=== PATIENT | male | born 1995 | race Caucasian/White ===

== ENCOUNTER 2018-04-07 13:38 | Emergency (ER) | payer OTHER ==
[2018-04-07] MEDS: NS 1,000 ML IV (14:32)
[2018-04-07] MEDS: HumuLIN R (REGULAR) INSULIN (NovoLIN R) **100U/ML** PER UNIT IV ×3 (14:32→16:30)
[2018-04-07 14:39] LABS: VENOUS BASE EXCESS -2.5 (-2.0-2.0); VENOUS HCO3 24.1 MEQ/L (23.0-27.0); VENOUS O2 SATURATION 85.8 % (60.0-80.0); VENOUS PARTIAL PRESSURE CO2 48.1 mmHg (38.0-50.0); VENOUS PH 7.318 UNITS (7.330-7.430); VENOUS STANDARD HCO3 22.1 MEQ/L; VENOUS TOTAL CO2 25.6 MEQ/L (24.0-28.0)
[2018-04-07 14:41] LABS: KETONE, URINE AUTO RFX 1+ mg/dL (NEGATIVE); LEUKOCYTE ESTERASE UR AUTO RFX NEGATIVE (NEGATIVE); NITRITE, URINE AUTO RFX NEGATIVE (NEGATIVE); RBC, URINE AUTO RFX 1 /HPF (0-3); SPECIFIC GRAVITY UR AUTO RFX 1.025 (1.002-1.035); SQUAM EPITHELIAL CELL UR AURFX 0 /HPF (0-6); WBC, URINE AUTO RFX 0 /HPF (0-3)
[2018-04-07 14:55] LABS: ESTIMATED AVERAGE GLUCOSE 269 MG/DL (60-110)
[2018-04-07 15:03] LABS: ACETONE/KETONE 21.17 MG/DL (<2.81); ANION GAP 12 MEQ/L (8-16); BLOOD UREA NITROGEN 37 MG/DL (7-18); CALCIUM LEVEL 9.5 MG/DL (8.5-10.1); CARBON DIOXIDE LEVEL 28 MEQ/L (21-32); CHLORIDE LEVEL 87 MEQ/L (98-107); CREATININE FOR GFR 1.62 MG/DL (0.70-1.30); POTASSIUM SERUM 4.9 MEQ/L (3.5-5.1); SODIUM LEVEL 127 MEQ/L (136-145)
[2018-04-07 15:07] LABS: GLUCOSE, FASTING 874 MG/DL (70-100)
[2018-04-07 15:19] LABS: BASO # 0.1 10^3/uL (0.0-0.2); BASO % 0.7 % (0.0-1.0); EOS # 0.4 10^3/uL (0.0-0.50); EOS % 5.9 % (0.0-3.0); HEMATOCRIT 45.3 % (42.0-52.0); HEMOGLOBIN 16.5 g/dl (13.5-17.5); IMMATURE GRANULOCYTE % 0.1 % (0-3.0); LYMPH # 2.1 10^3/uL (1.5-6.5); LYMPH % 28.5 % (24.0-44.0); MEAN CORPUSCULAR HEMOGLOBIN 30.5 pg (27.0-33.0); MEAN CORPUSCULAR HGB CONC 36.4 g/dl (32.0-36.5); MEAN CORPUSCULAR VOLUME 83.7 fl (80.0-96.0); MONO # 0.6 10^3/uL (0.0-0.8); MONO % 8.1 % (0.0-5.0); NEUTROPHILS # 4.1 10^3/uL (1.8-7.7); NEUTROPHILS % 56.7 % (36.0-66.0); PLATELET COUNT, AUTOMATED 214 10^3/uL (150-450); RED BLOOD COUNT 5.41 10^6/uL (4.30-6.10); RED CELL DISTRIBUTION WIDTH 11.6 % (11.5-14.5); WHITE BLOOD COUNT 7.3 10^3/uL (4.0-10.0)
[2018-04-07] MEDS: metFORMIN (GLUCOPHAGE) 1000 MG TABLET PO (15:27)
[2018-04-07 16:04] LABS: BEDSIDE GLUCOSE 471 MG/DL (70-105)
[2018-04-07 16:29] LABS: VENOUS BASE EXCESS -2.8 (-2.0-2.0); VENOUS HCO3 23.2 MEQ/L (23.0-27.0); VENOUS O2 SATURATION 86.3 % (60.0-80.0); VENOUS PARTIAL PRESSURE CO2 44.9 mmHg (38.0-50.0); VENOUS PARTIAL PRESSURE O2 53.8 mmHg (30.0-50.0); VENOUS PH 7.332 UNITS (7.330-7.430); VENOUS STANDARD HCO3 21.9 MEQ/L; VENOUS TOTAL CO2 24.6 MEQ/L (24.0-28.0)
[2018-04-07 17:03] LABS: BEDSIDE GLUCOSE 268 MG/DL (70-105)
[2018-04-07 18:27] LABS: BEDSIDE GLUCOSE 216 MG/DL (70-105)
[2018-04-09 11:13] LABS: BEDSIDE GLUCOSE > 600 MG/DL (70-105)
[2018-04-09 11:13] LABS: BEDSIDE GLUCOSE > 600 MG/DL (70-105)
== END 2018-04-07 19:30 | disposition home or self-care (01) ==
LOC: M ED 13:38
DX: E11.65 Type 2 diabetes mellitus with hyperglycemia (principal)
CPT/HCPCS: 82803

== ENCOUNTER 2018-04-08 16:43 | Emergency (ER) | payer OTHER ==
[2018-04-08] MEDS: NS 1,000 ML IV ×4 (16:21→18:15)
[2018-04-08 16:22] LABS: BASO # 0.1 10^3/uL (0.0-0.2); BASO % 0.6 % (0.0-1.0); EOS # 0.5 10^3/uL (0.0-0.50); EOS % 6.1 % (0.0-3.0); HEMATOCRIT 44.7 % (42.0-52.0); HEMOGLOBIN 16.2 g/dl (13.5-17.5); IMMATURE GRANULOCYTE % 0.2 % (0-3.0); LYMPH # 2.6 10^3/uL (1.5-6.5); LYMPH % 31.2 % (24.0-44.0); MEAN CORPUSCULAR HEMOGLOBIN 30.5 pg (27.0-33.0); MEAN CORPUSCULAR HGB CONC 36.2 g/dl (32.0-36.5); MONO # 0.6 10^3/uL (0.0-0.8); NEUTROPHILS # 4.6 10^3/uL (1.8-7.7); NEUTROPHILS % 54.9 % (36.0-66.0); PLATELET COUNT, AUTOMATED 212 10^3/uL (150-450); RED BLOOD COUNT 5.32 10^6/uL (4.30-6.10); RED CELL DISTRIBUTION WIDTH 11.5 % (11.5-14.5); VENOUS BASE EXCESS -0.4 (-2.0-2.0); VENOUS HCO3 27.7 MEQ/L (23.0-27.0); VENOUS O2 SATURATION 54.3 % (60.0-80.0); VENOUS PARTIAL PRESSURE CO2 58.8 mmHg (38.0-50.0); VENOUS PARTIAL PRESSURE O2 29.1 mmHg (30.0-50.0); VENOUS PH 7.291 UNITS (7.330-7.430); VENOUS TOTAL CO2 29.5 MEQ/L (24.0-28.0); WHITE BLOOD COUNT 8.3 10^3/uL (4.0-10.0)
[2018-04-08 16:53] LABS: ACETONE/KETONE 18.01 MG/DL (<2.81); ALBUMIN 4.5 GM/DL (3.2-5.2); ALKALINE PHOSPHATASE 120 U/L (45-117); ALT/SGPT 30 U/L (12-78); ANION GAP 9 MEQ/L (8-16); AST/SGOT 15 U/L (7-37); BILIRUBIN,DIRECT 0.1 MG/DL (0.0-0.2); BILIRUBIN,TOTAL 0.6 MG/DL (0.2-1.0); BLOOD UREA NITROGEN 28 MG/DL (7-18); CALCIUM LEVEL 9.5 MG/DL (8.5-10.1); CARBON DIOXIDE LEVEL 28 MEQ/L (21-32); CHLORIDE LEVEL 98 MEQ/L (98-107); CREATININE FOR GFR 1.22 MG/DL (0.70-1.30); GLOMERULAR FILTRATION RATE > 60.0 (>60); LIPASE 209 U/L (73-393); POTASSIUM SERUM 4.7 MEQ/L (3.5-5.1); SODIUM LEVEL 135 MEQ/L (136-145); TOTAL PROTEIN 7.5 GM/DL (6.4-8.2)
[2018-04-08 16:58] LABS: GLUCOSE, FASTING 412 MG/DL (70-100)
[2018-04-08 18:02] LABS: BEDSIDE GLUCOSE 294 MG/DL (70-105)
[2018-04-08] MEDS: metFORMIN (GLUCOPHAGE) 1000 MG TABLET PO ×2 (19:45)
[2018-04-11 10:50] LABS: BEDSIDE GLUCOSE 475 MG/DL (70-105)
== END 2018-04-08 20:06 | disposition home or self-care (01) ==
LOC: M ED 16:43
DX: E11.9 Type 2 diabetes mellitus without complications (principal)
CPT/HCPCS: 83690